=== PATIENT | female | born 1955 | race Caucasian/White ===

== ENCOUNTER 2022-01-20 21:04 | Emergency (ER) | payer MEDICARE, OTHER ==
[2022-01-20 22:18] LABS: HEMOGLOBIN 14.7 gm/dl (12.3-15.3); RED BLOOD COUNT 4.72 M/UL (4.00-5.10); WHITE BLOOD COUNT 13.7 K/UL (4.5-11.0)
[2022-01-20 22:38] LABS: BUN/CREATININE RATIO 29 (0-10)
[2022-01-21] MEDS ORDERED: ZOFRAN 4 MG TAB4 MG PO (02:49)
== END 2022-01-20 23:00 | disposition home or self-care (01) ==
LOC: ER1 21:04
PROVIDERS: Physician Assistant
DX: R10.84 Generalized abdominal pain (principal); R11.2 Nausea with vomiting, unspecified; R19.7 Diarrhea, unspecified; R00.0 Tachycardia, unspecified; Z20.822 Contact with and (suspected) exposure to COVID-19; Z90.710 Acquired absence of both cervix and uterus; Z88.0 Allergy status to penicillin; Z88.6 Allergy status to analgesic agent
CPT/HCPCS: 80053; 81001; 83605; 85025; 87040; 99284; Q9967; U0002